=== PATIENT | female | born 1970 | race Caucasian/White ===

== ENCOUNTER 2022-07-02 01:19 | Day surgery (SDC) | payer BC, SELFPAY ==
[2022-06-19 14:55] VITALS: BMI 40.7
--- NOTE | 2022-07-01 14:58 | WPDANESEPPF ---
Anes - Initial Pre Proc Eval Procedure: Operation Date: 07/02/22 08:00 Proposed Procedures p Esophagogastroduodenoscopy & Screening Colonoscopy - Josue Agarwal MD Date/Time: 07/01/22 14:58 Surgeon: Josue Agarwal MD Pre Op Diagnosis: Pre-bariatric surgery clearance/obesity; neopl scr Patient Data Age: 52 Gender: F Height: 1.7 m Weight: 118 kg Allergies Allergy/AdvReac Type Severity Reaction Status Date / Time Sulfa (Sulfonamide Allergy Mild RASH, Verified 07/02/22 06:45 Antibiotics) ITCHING Home Medications Medication Instructions Recorded Confirmed Type telmisartan 80 mg-amlodipine 5 mg 1 tablet PO DAILY #90 tabs 01/22/22 07/02/22 Rx tablet esomeprazole magnesium 40 mg See Rx Instructions .Route 04/10/22 07/02/22 Rx capsule,delayed release .COMPLEX #90 caps hydroxychloroquine 200 mg tablet 200 mg PO DAILY #90 tabs 04/10/22 07/02/22 Rx (Plaquenil) albuterol sulfate 90 mcg/actuation 1 inh inhalation PRN PRN shortness 06/19/22 07/02/22 History aerosol inhaler (Ventolin HFA) of breath or wheezing Patient hx anesthesia problems: none Family hx anesthesia problems: none Results Review: All pre-operative results and documents have been reviewed as part of the pre-operative evaluation. 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 Essential (primary) hypertension Hammer toes, bilateral Obesity, morbid, BMI 40.0-49.9 Recurrent UTI Rosacea Stress ulcer Surgical History Surgical History H/O neck surgery (~12/27/12) anterior cervical diskectomy C5-6, C6-7 (Dr Patel) History of bladder suspension procedure (~2002) S/P appendectomy (~1977) S/P endometrial ablation (~2005) S/P excision of Ventura's neuroma (~2005) Family History Family History Father Diabetes mellitus Hypertension Family history of elevated blood lipids Cerebrovascular accident Mother Diabetes mellitus Family history of cardiovascular disease Grandparent Diabetes mellitus Hypertension Carcinoma of colon Family history of malignant neoplasm of breast Family history of coronary artery disease Social History Social History (Updated 04/10/22 @ 14:54 by TRIP Baldwin) Smoking status: Never smoker Second hand tobacco smoke exposure: No Alcohol intake: current Drinks per week: 4 Substance use: never Substance use type: does not use Living arrangements: with family Gender identity (if verbalized by the patient): Female Spiritual care concerns: No Agree to blood products: Yes Anes - Eval Final PreProcedure Day of Procedure 07/01/22 14:58 Patient weight: morbidly obese Heart: regular rate and rhythm Lungs: clear to auscultation and normal air movement Airway: Mallampati scale class II Neurological: alert and oriented Last oral intake: >/= 8 hours ASA classification: III Emergent: no Anesthetic plan: proceed Anesthesia type and monitoring: general GIVS Results Review: All pre-operative results and documents have been reviewed as part of the pre-operative evaluation. Informed Consent: The patient's anesthetic plan and its attendant risks and benefits were discussed with the patient/family/POA. Questions were solicited and answers provided to the satisfaction of the patient/family/POA.
[2022-07-02 06:42] VITALS: BP 151/86; PULSE 77; RESP 18; TEMP 36.2; O2SAT 99; BMI 41.0
[2022-07-02] MEDS: LACTATED RINGERS 1,000 ML 150 ML IV CONT (07:09)
--- NOTE | 2022-07-02 07:15 | PM.HPGS ---
History of Present Illness History of Present Illness Consent: Risks, benefits, and alternatives have been discussed and questions answered. Patient agrees to proceed with procedure. Chief complaint: Pre-bariatric surgery clearance/obesity; neopl scr Narrative: Ann-Marie Wright is a 52 year old female Presents for colonoscopy and EGD. Patient desires neoplasia screening. She did have an unremarkable colonoscopy 10 years ago. Patient reports her current appetite and bowel movements are normal. Patient anticipates bariatric surgery an EGD is requested prior to considering this surgery. She states she very infrequently will have a sharp chest discomfort of uncertain nature in etiology. She does not take particular medications for this. Family history is noncontributory. Review of Systems Review of Systems: Review of systems noncontributory. 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 Essential (primary) hypertension Hammer toes, bilateral Obesity, morbid, BMI 40.0-49.9 Recurrent UTI Rosacea Stress ulcer Surgical History Surgical History H/O neck surgery (~12/27/12) anterior cervical diskectomy C5-6, C6-7 (Dr Patel) History of bladder suspension procedure (~2002) S/P appendectomy (~1977) S/P endometrial ablation (~2005) S/P excision of Ventura's neuroma (~2005) Family History Family History Father Diabetes mellitus Hypertension Family history of elevated blood lipids Cerebrovascular accident Mother Diabetes mellitus Family history of cardiovascular disease Grandparent Diabetes mellitus Hypertension Carcinoma of colon Family history of malignant neoplasm of breast Family history of coronary artery disease Social History Social History (Updated 04/10/22 @ 14:54 by Viv García Ravin) Smoking status: Never smoker Second hand tobacco smoke exposure: No Alcohol intake: current Drinks per week: 4 Substance use: never Substance use type: does not use Living arrangements: with family Gender identity (if verbalized by the patient): Female Spiritual care concerns: No Agree to blood products: Yes Meds Home Medications and Allergies Home Medications Medication Instructions Recorded Confirmed Type telmisartan 80 mg-amlodipine 5 mg 1 tablet PO DAILY #90 tabs 01/22/22 07/02/22 Rx tablet esomeprazole magnesium 40 mg See Rx Instructions .Route 04/10/22 07/02/22 Rx capsule,delayed release .COMPLEX #90 caps hydroxychloroquine 200 mg tablet 200 mg PO DAILY #90 tabs 04/10/22 07/02/22 Rx (Plaquenil) albuterol sulfate 90 mcg/actuation 1 inh inhalation PRN PRN shortness 06/19/22 07/02/22 History aerosol inhaler (Ventolin HFA) of breath or wheezing Allergies Allergy/AdvReac Type Severity Reaction Status Date / Time Sulfa (Sulfonamide Allergy Mild RASH, Verified 07/02/22 06:45 Antibiotics) ITCHING Vital Signs Vital Signs - 24 hr 07/02/22 06:42 Temperature 97.2 F L Pulse Rate 77 Respiratory Rate 18 Blood Pressure 151/86 H Pulse Oximetry 99 Oxygen Delivery Room Air Exam Narrative: Physical exam reveals patient to be alert. Vital signs stable. HEENT exam is unremarkable. Patient is anicteric. Lungs are clear to auscultation and percussion. Heart is without murmur or extra sounds. Abdomen is obese. Bowel sounds are present soft nontender with no organomegaly. Digital external rectal exam is normal. Assessment and Plan Assessment and plan (1) Pre-bariatric surgery nutrition evaluation: Code(s): Z71.3 - Dietary counseling and surveillance Status: Acute Assessment and Plan: EGD recur rested because of anticipated bariatric
--- NOTE | 2022-07-02 08:02 | SUR.OPER ---
EGD START TIME 08 AND END TIME 803. COLONOSCOPY START TIME 809.
[2022-07-02 08:25] VITALS: BP 126/69; PULSE 72; RESP 23; O2SAT 97
[2022-07-02 08:35] VITALS: BP 129/81; PULSE 63; RESP 15; O2SAT 98
[2022-07-02 08:45] VITALS: BP 141/90; PULSE 67; RESP 21; O2SAT 99
== END 2022-07-02 08:58 | disposition home or self-care (01) ==
PROVIDERS: PCP Family Medicine; Visit Provider Internal Medicine Gastroenterology
PROC: 0DJ08ZZ Inspection of Upper Intestinal Tract, Via Natural or Artificial Opening Endoscopic (ICD-10-PCS; CPT 43235; principal; 2022-07-02 08:00)
DX: Z01.818 Encounter for other preprocedural examination (principal); Z12.11 Encounter for screening for malignant neoplasm of colon; K64.8 Other hemorrhoids; I10 Essential (primary) hypertension; M35.9 Systemic involvement of connective tissue, unspecified; E66.01 Morbid (severe) obesity due to excess calories; Z68.41 Body mass index [BMI] 40.0-44.9, adult
CPT/HCPCS: 45378; 43235; J2704; J7120

== ENCOUNTER 2024-12-13 14:47 | Outpatient (CLI) | payer BC, SELFPAY ==
--- NOTE | ~2024-12-13 | MM_ITS ---
EXAMINATION: MM screening brisa BI w gu[place] HISTORY: Screening TECHNIQUE: Craniocaudal and mediolateral oblique 3-D tomosynthesis images were obtained and synthetic 2-D images were generated. CAD analysis was submitted and interpreted. COMPARISON: 05/18/2007 BREAST PARENCHYMAL COMPOSITION: Not dense: There are scattered areas of fibroglandular density. FINDINGS: There is no evidence of suspicious mass, calcification, or architectural distortion to sugg est malignancy in either breast. There has been no suspicious interval change. IMPRESSION: 1. No mammographic evidence of malignancy. 2. Recommend routine screening mammography in one year. BI-RADS Category 1: Negative Reviewed, dictated and finalized at location A.
== END 2024-12-13 14:48 | disposition home or self-care (01) ==
LOC: MICIMG 14:47
PROVIDERS: PCP Family Medicine; Visit Provider Family Medicine
DX: Z12.31 Encounter for screening mammogram for malignant neoplasm of breast (principal)
CPT/HCPCS: 77063; 77067